=== PATIENT | female | born 1995 | race Caucasian/White ===

== ENCOUNTER → 2017-01-03 | Outpatient (CLI) | payer OTHER ==
--- NOTE | 2017-01-03 15:56 | KCIC ---
MR of the right shoulder Indication: Right shoulder pain. Pain and limited range of motion. Technique: Standard multiplanar sequences are obtained. Findings: Acromioclavicular joint:Intact. Rotator cuff: No rotator cuff tear. No significant subacromial subdeltoid bursal effusion. Glenohumeral joint: No significant effusion. No advanced osteoarthritis. Labrum: Mild signal at the posterosuperior labrum at about 9:00 through 11:00. Biceps tendon: Intact Bones: No lesion or acute fracture. Soft tissue: No acute findings. Impression: Mild signal at the posterosuperior labrum, not definitive, but raising the question of the small tear. Consider MR arthrography if further workup would be of benefit. Electronically signed by: Michi Hernandez MD (01/03/2017 3:53 PM) [id number]
== END | disposition home or self-care (01) ==
LOC: KCIC MRI 14:42
PROVIDERS: ATTEND Chiropractor
DX: M25.511 Pain in right shoulder (principal)
CPT/HCPCS: 73221